=== PATIENT | female | born 1945 | race Caucasian/White ===

== ENCOUNTER 2020-08-01 21:00 | Inpatient (IN) ==
[2020-08-01] MEDS ORDERED: DOPamine 800 MG/250 ML PREMIX IV ONE (21:15)
[2020-08-01 21:17] VITALS: BP 88/42
[2020-08-01] MEDS ORDERED: SODIUM CHLORIDE 0.9% 1,000 ML IV STA (21:18)
[2020-08-01] MEDS ORDERED: DOPamine 800 MG/250 ML PREMIX IV PRN (21:21)
[2020-08-01 21:42] LABS: Hematocrit 32.5 VOL% (35.7-47.0); Hemoglobin 10.9 GM/DL (12.0-16.0); Immature Granulocytes % 0.3 %; Immature Granulocytes Absolute 0.01 #; Lymphocytes # 0.6 10*3/uL (1.4-4.0); Lymphocytes % 16.8 % (21.3-54.2); Mean Corpuscular HGB Conc 33.5 GM/DL (32-36); Mean Corpuscular Volume 102.5 FL (87-102); Mean Platelet Volume 8.8 FL (9.6-12.0); Neutrophils % 79.9 % (38.7-73.9); Platelet Count 111 T/CUMM (130-400); Red Blood Count 3.17 MC/CUMM (3.8-5.5); Red Cell Distribution Width 18.7 % (9.3-17.3); White Blood Count 3.3 T/CUMM (4-12)
[2020-08-01 21:51] LABS: INR 1.4; PT Patient Result 15.1 SECS (9.8-11.9)
[2020-08-01] MEDS ORDERED: LIDOCAINE 1% 20 ML VIAL ONE (21:51)
[2020-08-01] MEDS ORDERED: MIDAZOLAM 2 MG/2 ML VIAL ONE (21:53)
[2020-08-01] MEDS ORDERED: fentaNYL 100 MCG/2 ML VIAL ONE (21:53)
[2020-08-01 22:17] LABS: Albumin 3.3 G/DL (3.4-5.0); Bilirubin,Total 0.5 MG/DL (0.2-1.0); Calcium 8.5 MG/DL (8.5-10.1); Osmolality,Calculated 289.3 MOS/KG (273-304); Potassium 4.5 MMOL/L (3.5-5.1); Total Protein 6.6 G/DL (6.4-8.2)
[2020-08-01] MEDS ORDERED: ONDANSETRON 4 MG/2 ML VIAL ONE (22:29)
[2020-08-01] MEDS ORDERED: diphenhydrAMINE CAP 25 MG CAPSULE PO PRN (22:37)
[2020-08-01] MEDS ORDERED: ZALEPLON 5 MG CAPSULE PO PRN (22:37)
[2020-08-01] MEDS ORDERED: ONDANSETRON 4 MG/2 ML VIAL IV PRN (22:37)
[2020-08-01] MEDS ORDERED: ALUMINUM/MAGNES/SIMETH MAX STR 30 ML UDCUP PO PRN (22:37)
[2020-08-01] MEDS ORDERED: HYDROmorphone 2 MG/1 ML VIAL IV PRN (22:49)
[2020-08-01] MEDS ORDERED: CLORAZEPATE 3.75 MG TABLET PO PRN (22:50)
[2020-08-01] MEDS ORDERED: DEXTROSE 50% 25 GM/50 ML VIAL IV PRN (22:53)
[2020-08-01] MEDS ORDERED: GLUCAGON 1 MG VIAL IM PRN (22:53)
[2020-08-01] MEDS: ENOXAPARIN 100 MG/ML SYRINGE SUBCUT SCH (23:25)
[2020-08-01] MEDS: SODIUM CHLORIDE 0.9% 1,000 ML IV SCH (23:25)
[2020-08-02 00:06] LABS: Calcium 8.3 MG/DL (8.5-10.1); Osmolality,Calculated 287.4 MOS/KG (273-304)
[2020-08-02 06:20] LABS: Basophils % 0.1 % (0.0-0.8); Hematocrit 31.3 VOL% (35.7-47.0); Hemoglobin 10.3 GM/DL (12.0-16.0); Immature Granulocytes % 0.4 %; Immature Granulocytes Absolute 0.03 #; Lymphocytes # 0.8 10*3/uL (1.4-4.0); Lymphocytes % 11.4 % (21.3-54.2); Mean Corpuscular HGB Conc 32.9 GM/DL (32-36); Mean Corpuscular Volume 104.3 FL (87-102); Monocytes % 7.1 % (1.7-12.7); Platelet Count 106 T/CUMM (130-400); Red Cell Distribution Width 18.6 % (9.3-17.3); White Blood Count 6.9 T/CUMM (4-12)
[2020-08-02] MEDS: LEVOTHYROXINE 150 MCG TABLET PO SCH (06:20)
[2020-08-02 06:40] LABS: Calcium 8.7 MG/DL (8.5-10.1); Osmolality,Calculated 279.5 MOS/KG (273-304); Potassium 4.3 MMOL/L (3.5-5.1)
[2020-08-02 07:04] LABS: Thyroid Stimulating Hormone 0.252 uIU/ml (0.358-3.74)
[2020-08-02] MEDS: INSULIN REGULAR 100 UNIT/ML SUBCUT SCH ×4 (08:13→20:12)
[2020-08-02] MEDS: ESTRADIOL 1 MG TABLET PO SCH (08:27)
[2020-08-02] MEDS: PRAMIPEXOLE 0.25 MG TABLET PO SCH ×2 (08:27→20:20)
[2020-08-02] MEDS: PANTOPRAZOLE 40 MG TABLET PO SCH (08:27)
[2020-08-02] MEDS: CHOLECALCIFEROL 1,000 UNIT TABLET PO SCH ×4 (08:28→20:20)
[2020-08-02] MEDS: MONTELUKAST 10 MG TABLET PO SCH (08:28)
[2020-08-02] MEDS: ENOXAPARIN 100 MG/ML SYRINGE SUBCUT SCH ×2 (11:54→23:29)
[2020-08-02] MEDS: ALBUTEROL 2.5 MG/3 ML NEB RESP TX PRN (18:13)
[2020-08-03 06:33] LABS: ABG Base Excess 1.2 MMOL/L (-2.5-2.5); ABG HCO3 25.4 MMOL/L (20-26); ABG Oxygen Saturation 93.5 % (95-100); ABG PCO2 37.9 MM HG (35-48); ABG PH 7.434 (7.35-7.45); ABG PO2 67.7 MM HG (80-95); ABG TCO2 22.9 MMOL/L (23-27)
[2020-08-03 06:36] LABS: Basophils % 0.1 % (0.0-0.8); Eosinophils % 0.2 % (0.00-10.9); Hematocrit 30.8 VOL% (35.7-47.0); Hemoglobin 10.2 GM/DL (12.0-16.0); Immature Granulocytes % 0.5 %; Immature Granulocytes Absolute 0.04 #; Lymphocytes # 0.6 10*3/uL (1.4-4.0); Lymphocytes % 6.9 % (21.3-54.2); Mean Corpuscular HGB Conc 33.1 GM/DL (32-36); Mean Corpuscular Volume 104.4 FL (87-102); Mean Platelet Volume 8.7 FL (9.6-12.0); Monocytes % 7.5 % (1.7-12.7); Neutrophils % 84.8 % (38.7-73.9); Platelet Count 118 T/CUMM (130-400); Red Blood Count 2.95 MC/CUMM (3.8-5.5); Red Cell Distribution Width 18.6 % (9.3-17.3); White Blood Count 8.2 T/CUMM (4-12)
[2020-08-03 06:59] LABS: Hypochromasia 1+; Microcytosis 1+
[2020-08-03 07:04] LABS: Calcium 8.3 MG/DL (8.5-10.1); Osmolality,Calculated 277.7 MOS/KG (273-304); Potassium 3.8 MMOL/L (3.5-5.1)
[2020-08-03] MEDS: INSULIN REGULAR 100 UNIT/ML SUBCUT SCH ×4 (08:12→20:36)
[2020-08-03 08:16] LABS: INR 1.3
[2020-08-03] MEDS ORDERED: ceFAZolin 1,000 MG VIAL IRRIG ONE (09:36)
[2020-08-03] MEDS: PRAMIPEXOLE 0.25 MG TABLET PO SCH ×2 (10:16→20:28)
[2020-08-03] MEDS: CHOLECALCIFEROL 1,000 UNIT TABLET PO SCH ×4 (10:25→20:28)
[2020-08-03] MEDS ORDERED: diphenhydrAMINE CAP 50 MG CAPSULE PO ONE (10:30)
[2020-08-03] MEDS ORDERED: DIAZEPAM 5 MG TABLET PO ONE (10:30)
[2020-08-03] MEDS ORDERED: ceFAZolin 1,000 MG VIAL ONE ×2 (11:24)
[2020-08-03] MEDS ORDERED: HYDROmorphone 2 MG/1 ML VIAL ONE (11:24)
[2020-08-03] MEDS ORDERED: MIDAZOLAM 2 MG/2 ML VIAL ONE (11:24)
[2020-08-03] MEDS ORDERED: LIDOCAINE 1%/EPI INJ 20 ML VIAL ONE (11:24)
[2020-08-03] MEDS ORDERED: TISSUE ADHESIVE 1 EACH APPLICATOR TOP ONE (12:14)
[2020-08-03] MEDS: SODIUM CHLORIDE 0.9% 1,000 ML IV SCH (13:48)
[2020-08-03] MEDS: PANTOPRAZOLE 40 MG TABLET PO SCH (14:41)
[2020-08-03] MEDS: ESTRADIOL 1 MG TABLET PO SCH (14:41)
[2020-08-03] MEDS: LEVOTHYROXINE 150 MCG TABLET PO SCH (14:41)
[2020-08-03] MEDS: MONTELUKAST 10 MG TABLET PO SCH (14:41)
[2020-08-03] MEDS: ALBUTEROL 2.5 MG/3 ML NEB RESP TX PRN (14:56)
[2020-08-03] MEDS ORDERED: WARFARIN 2.5 MG TABLET PO SCH (18:00)
[2020-08-04 04:54] LABS: Basophils % 0.3 % (0.0-0.8); Eosinophils # 0.2 10*3/uL (0.0-0.87); Eosinophils % 2.9 % (0.00-10.9); Hematocrit 30.4 VOL% (35.7-47.0); Hemoglobin 10.1 GM/DL (12.0-16.0); Immature Granulocytes % 0.5 %; Immature Granulocytes Absolute 0.03 #; Lymphocytes # 0.6 10*3/uL (1.4-4.0); Lymphocytes % 8.8 % (21.3-54.2); Mean Corpuscular HGB Conc 33.2 GM/DL (32-36); Mean Corpuscular Volume 103.8 FL (87-102); Mean Platelet Volume 8.9 FL (9.6-12.0); Monocytes % 9.8 % (1.7-12.7); Neutrophils % 77.7 % (38.7-73.9); Platelet Count 121 T/CUMM (130-400); Red Blood Count 2.93 MC/CUMM (3.8-5.5); Red Cell Distribution Width 17.9 % (9.3-17.3); White Blood Count 6.2 T/CUMM (4-12)
[2020-08-04 05:11] LABS: INR 1.2; PT Patient Result 12.7 SECS (9.8-11.9)
[2020-08-04 05:16] LABS: Anisocytosis 1+; Calcium 8.3 MG/DL (8.5-10.1); Hypochromasia 1+; Microcytosis 1+; Osmolality,Calculated 276.7 MOS/KG (273-304); Ovalocytes Slight; Platelet Estimate Adequate; Potassium 3.8 MMOL/L (3.5-5.1); Tear Drop Cells Slight
[2020-08-04] MEDS: LEVOTHYROXINE 150 MCG TABLET PO SCH (06:00)
[2020-08-04] MEDS: MONTELUKAST 10 MG TABLET PO SCH (09:05)
[2020-08-04] MEDS: PRAMIPEXOLE 0.25 MG TABLET PO SCH (09:05)
[2020-08-04] MEDS: PANTOPRAZOLE 40 MG TABLET PO SCH (09:05)
[2020-08-04] MEDS: CHOLECALCIFEROL 1,000 UNIT TABLET PO SCH (09:05)
[2020-08-04] MEDS: ESTRADIOL 1 MG TABLET PO SCH (09:06)
[2020-08-04] MEDS: INSULIN REGULAR 100 UNIT/ML SUBCUT SCH (09:55)
== END 2020-08-04 10:55 | disposition home or self-care (01) | DRG 243 ==
LOC: EDBD → EDUNIT# → N.ED 21:00 → N.CC 21:57 → N.EDINP 22:21 → N.CC 22:56
PROVIDERS: ADMIT Internal Medicine Cardiovascular Disease; ATTEND Internal Medicine Cardiovascular Disease